=== PATIENT | female | born 1995 | race Caucasian/White ===

== ENCOUNTER 2025-04-16 17:39 | Emergency (ER) | payer BC ==
--- NOTE | 2025-04-16 17:56 | ERPHSYRPT ---
- History of Present Illness Time Seen by Provider: 04/16/25 17:44 Source: patient Physician History: This is a 29-year-old female who states she has been having chest pain midsternal on and off for multiple years. Patient states she had a stress 5 years ago but does not know the results. Patient does not have a history of hypertension, hyperlipidemia, diabetes or any other known vascular risk. She states her grandfather had heart attack in his 50s. Patient does not smoke, drink or use drugs. Patient does have a history of asthma. No cough. No leg pain or edema. Patient walks daily and has had no change in her usual exercise tolerance. Allergies/Adverse Reactions: No Known Drug Allergies Allergy (Verified 04/16/25 17:41) Home Medications: Fluoxetine HCl 10 mg [Prozac 10 mg] 10 mg PO DAILY 11/15/13 [History] Multivitamin [Multi-Vitamin Daily] 1 tab PO DAILY 04/16/25 [History] Omeprazole 20 mg PO DAILY 04/16/25 [History] hydrOXYzine HCL [Hydroxyzine HCl] 25 mg PO DAILY PRN 04/16/25 [History] Hx Tetanus, Diphtheria Vaccination/Date Given: Yes Hx Influenza Vaccination/Date Given: No Hx Pneumococcal Vaccination/Date Given: No - Review of Systems All Other Systems: Reviewed and Negative (As per HPI otherwise negative) - Past Medical History Pertinent Past Medical History: Yes Neurological History: No Pertinent History ENT History: No Pertinent History Cardiac History: No Pertinent History Respiratory History: Asthma Endocrine Medical History: No Pertinent History Musculoskeletal History: No Pertinent History GI Medical History: No Pertinent History History: No Pertinent History Psycho-Social History: Depression Female Reproductive Disorders: No Pertinent History - Past Surgical History Past Surgical History: No Neuro Surgical History: No Pertinent History Cardiac: No Pertinent History Respiratory: No Pertinent History Gastrointestinal: No Pertinent History Genitourinary: No Pertinent History Musculoskeletal: No Pertinent History Female Surgical History: No Pertinent History - Female History Hx Last Menstrual Period: 2 WEEKS - Social History Smoking Status: Never smoker Exposure to second hand smoke: Yes Drug Use: none Patient Lives Alone: No - Nursing Vital Signs Nursing Vital Signs: Initial Vital Signs Temperature 98.1 F 04/16/25 17:52 Pulse Rate 100 H 04/16/25 17:52 Respiratory Rate 12 04/16/25 17:52 Blood Pressure 140/84 04/16/25 17:52 O2 Sat by Pulse Oximetry 100 04/16/25 17:52 Pain Scale Pain Intensity 2 - Physical Exam Comments: 04/16/25 17:55 General: Well-nourished well-developed. No apparent distress. Moderately obese. HEENT: Normocephalic atraumatic no obvious facial or neck deformity or injury. Neck: Supple. No deformity or mass noted. CV: RRR NL Perfusion. No edema Resp: No Respiratory distress or adventitious breath sounds Abd: ND SNT MSK: No deformity or TTP Neuro: Alert and Harrah x4. No gross focal neurologic changes Psych: No SI, HI or grave disability Ordered Tests: Active Orders 24 hr Category Date Time Status CHEST 1 VIEW (PORTABLE) Stat Exams 04/16/25 18:00 Taken CBC W DIFF Stat Lab 04/16/25 18:15 Completed CMP Stat Lab 04/16/25 18:15 Completed D-DIMER QUANTITATIVE Stat Lab 04/16/25 18:15 Completed HCG QUALITATIVE, SERUM Stat Lab 04/16/25 18:15 Completed MAGNESIUM Stat Lab 04/16/25 18:15 Completed TROPONIN Q4H Lab 04/16/25 18:15 Received TROPONIN Q4H Lab 04/16/25 22:15 Ordered UA W/RFX UR CULTURE Stat Lab 04/16/25 18:27 Ordered Urine Triage Profile Stat Lab 04/16/25 18:27 Ordered EKG 5:39 PM sinus tachycardia 101 bpm. No ischemic changes. There is motion artifact. Patient is anxious and talking during exam. Lab/Rad Data: Laboratory Result Diagrams 04/16/25 18:15 04/16/25 18:15 Laboratory Results 04/16/25 04/16/25 04/16/25 Range/Units 18:15 18:15 18:15 WBC (3.98-10.04) x10^3/uL RBC (3.93-5.22) x10^6/uL Hgb (11.2-15.7) g/dL Hct (34.1-44.9) % MCV (79.4-94.8) fL MCH (25.6-32.2) pg MCHC (32.2-35.5) g/dL RDW (11.7-14.4) % Plt Count (182-369) x10^3/uL MPV (9.4-12.3) fL Gran % (34.0-71.1) % Immature Gran % (Auto) (0.001-0.429) % Nucleat RBC Rel Count (0.00-0.2) % Eos # (Auto) (0.04-0.36) x10^3/uL Immature Gran # (Auto) (0.001-0.031) x10^3u/L Absolute Lymphs (auto) (1.18-3.74) x10^3/uL Absolute Monos (auto) (0.24-0.86) x10^3/uL Absolute Nucleated RBC (0.00-0.012) x10^3u/L Lymphocytes % (19.3-51.7) % Monocytes % (4.7-12.5) % Eosinophils % (0.7-5.8) % Basophils % (0.1-1.2) % Absolute Granulocytes (1.56-6.13) x10^3/uL Basophils # (0.01-0.08) x10^3/uL D-Dimer 0.43 (0.0-0.50) mg/L Sodium 137 (135-145) mmol/L Potassium 4.0 (3.5-5.1) mmol/L Chloride 105 (98-107) mmol/L Carbon Dioxide 26 (22-30) mmol/L Anion Gap 10.1 (5-15) MEQ/L BUN 10 (7-17) mg/dL Creatinine 0.81 (0.52-1.04) mg/dL Estimated GFR 100.1 ML/MIN Glucose 92 (74-106) mg/dL Calcium 9.6 (8.4-10.2) mg/dL Magnesium 1.7 (1.6-2.3) mg/dL Total Bilirubin 0.20 (0.2-1.3) mg/dL AST 45 H (14-36) U/L ALT 70 H (0-35) U/L Alkaline Phosphatase 108 (38-126) U/L Serum Total Protein 7.0 (6.3-8.2) g/dL Albumin 4.2 (3.5-5.0) g/dL Serum HCG, Qual NEGATIVE (NEGATIVE) 04/16/25 Range/Units 18:15 WBC 14.5 H (3.98-10.04) x10^3/uL RBC 4.76 (3.93-5.22) x10^6/uL Hgb 13.8 (11.2-15.7) g/dL Hct 42.0 (34.1-44.9) % MCV 88.2 (79.4-94.8) fL MCH 29.0 (25.6-32.2) pg MCHC 32.9 (32.2-35.5) g/dL RDW 12.9 (11.7-14.4) % Plt Count 344 (182-369) x10^3/uL MPV 10.2 (9.4-12.3) fL Gran % 61.3 (34.0-71.1) % Immature Gran % (Auto) 0.4 (0.001-0.429) % Nucleat RBC Rel Count 0.0 (0.00-0.2) % Eos # (Auto) 0.45 H (0.04-0.36) x10^3/uL Immature Gran # (Auto) 0.06 H (0.001-0.031) x10^3u/L Absolute Lymphs (auto) 3.94 H (1.18-3.74) x10^3/uL Absolute Monos (auto) 1.08 H (0.24-0.86) x10^3/uL Absolute Nucleated RBC 0.00 (0.00-0.012) x10^3u/L Lymphocytes % 27.1 (19.3-51.7) % Monocytes % 7.4 (4.7-12.5) % Eosinophils % 3.1 (0.7-5.8) % Basophils % 0.7 (0.1-1.2) % Absolute Granulocytes 8.90 H (1.56-6.13) x10^3/uL Basophils # 0.10 H (0.01-0.08) x10^3/uL D-Dimer (0.0-0.50) mg/L Sodium (135-145) mmol/L Potassium (3.5-5.1) mmol/L Chloride (98-107) mmol/L Carbon Dioxide (22-30) mmol/L Anion Gap (5-15) MEQ/L BUN (7-17) mg/dL Creatinine (0.52-1.04) mg/dL Estimated GFR ML/MIN Glucose (74-106) mg/dL Calcium (8.4-10.2) mg/dL Magnesium (1.6-2.3) mg/dL Total Bilirubin (0.2-1.3) mg/dL AST (14-36) U/L ALT (0-35) U/L Alkaline Phosphatase (38-126) U/L Serum Total Protein (6.3-8.2) g/dL Albumin (3.5-5.0) g/dL Serum HCG, Qual (NEGATIVE) Chest x-ray no acute disease preliminary wet read. - Progress Progress Note: 04/16/25 18:50 Initial laboratory studies no leukocytosis. Cardiac markers not available yet. Preliminary chest x-ray read by myself shows no acute findings. Will endorse patient care over to oncoming emergency physician Dr. Angel Rodrigues final treatment and disposition. 04/16/25 18:51 - Departure Departure Disposition: Observation (Still a patient being endorsed to Dr. Angel Rodrigues.) Clinical Impression: Chest pain Qualifiers: Chest pain type: unspecified Qualified Code(s): R07.9 - Chest pain, unspecified Condition: Stable Critical Care Time: No Referrals: EUGENIO NDIAYE [NON-STAFF PHY W/O PRIVILEGES, INTERNAL MEDICINE] - Follow up/PCP as directed
[2025-04-16 18:17] VITALS: TEMP 98.1
[2025-04-16 18:17] LABS: BASOPHIL % 0.7 % (0.1-1.2); Basophil (Absolute #) 0.10 x10^3/uL (0.01-0.08); Eosinophil (Absolute #) 0.45 x10^3/uL (0.04-0.36); Hematocrit 42.0 % (34.1-44.9); Hemoglobin 13.8 g/dL (11.2-15.7); IMMATURE GRAN # 0.06 x10^3u/L (0.001-0.031); IMMATURE GRAN % 0.4 % (0.001-0.429); Lymphocyte (Absolute #) 3.94 x10^3/uL (1.18-3.74); Mean Corpuscular Hemoglobin 29.0 pg (25.6-32.2); Mean Corpuscular Hgb Concent. 32.9 g/dL (32.2-35.5); Monocyte (Absolute #) 1.08 x10^3/uL (0.24-0.86); NUCLEATED RBC # 0.00 x10^3u/L (0.00-0.012); NUCLEATED RBC % 0.0 % (0.00-0.2); Platelet Count 344 x10^3/uL (182-369); Red Blood Count 4.76 x10^6/uL (3.93-5.22); White Blood Count 14.5 x10^3/uL (3.98-10.04)
[2025-04-16 18:37] LABS: Calcium 9.6 mg/dL (8.4-10.2); Carbon Dioxide 26.0 mmol/L (22-30); Creatinine 1 0.81 mg/dL (0.52-1.04); EST GLOMERULAR FILTRATION RATE 100.1 ML/MIN; Glucose 92.0 mg/dL (74-106); Potassium 4.0 mmol/L (3.5-5.1); SGOT/AST 45.0 U/L (14-36); SGPT/ALT 70.0 U/L (0-35); Total Protein 7.0 g/dL (6.3-8.2)
[2025-04-16 18:45] LABS: HCG SERUM TEST NEGATIVE (NEGATIVE)
[2025-04-16 19:25] LABS: Glucose, Urine Negative (Negative); Protein,Urine Dip Negative (Negative)
[2025-04-16 19:34] LABS: Amphetamine,Urine NEGATIVE (NEGATIVE); Barbiturate,Urine NEGATIVE (NEGATIVE); Benzodiazepine,Urine NEGATIVE (NEGATIVE); Cocaine,Urine NEGATIVE (NEGATIVE); Methadone,Urine NEGATIVE (NEGATIVE); Opiate,Urine NEGATIVE (NEGATIVE); PCP,Urine NEGATIVE (NEGATIVE); THC,Urine NEGATIVE (NEGATIVE)
[2025-04-16] MEDS ORDERED: TYLENOL EXTRA STRENGTH 500 MG ONE (20:03)
[2025-04-16] MEDS: TYLENOL EXTRA STRENGTH 500 MG PO STA (20:04)
[2025-04-16] MEDS ORDERED: ROCEPHIN 1 GM / 100 ML NaCl 0 GM/0 ML IVPB IV ONE (22:18)
[2025-04-16] MEDS ORDERED: Macrobid 100MG Capsule ONE (22:20)
[2025-04-16] MEDS: ROCEPHIN 1 GM / 100 ML NaCl 1 GM/100 ML IVPB IV ONE (22:20)
[2025-04-16] MEDS: Macrobid 100MG Capsule PO ONE (22:21)
[2025-04-16 23:01] VITALS: BP 121/84; PULSE 90; RESP 16; O2SAT 95
--- NOTE | 2025-04-17 09:05 | XRAY ---
Indication: Chest pain. Comparison: November 15, 2013 Portable chest again hyperinflated and clear. Heart not enlarged. Bony thorax intact. No new/acute findings.
== END 2025-04-16 23:00 | disposition left against medical advice (07) ==
LOC: ED 17:39
DX: R07.9 Chest pain, unspecified (principal); I24.9 Acute ischemic heart disease, unspecified; D72.829 Elevated white blood cell count, unspecified; N39.0 Urinary tract infection, site not specified; Z79.899 Other long term (current) drug therapy